=== PATIENT | female | born 1955 | race African-American/Black ===

== ENCOUNTER 2018-01-09 15:04 | Outpatient (CLI) | payer MEDICARE, MEDICAID | END 2018-01-09 15:05 | disposition home or self-care (01) | LOC: BICMAMMO 15:04 | PROVIDERS: ATTEND Nurse Practitioner Family | DX: Z12.31 Encounter for screening mammogram for malignant neoplasm of breast (principal); Z80.3 Family history of malignant neoplasm of breast | CPT/HCPCS: 77063; 77067 ==

== ENCOUNTER 2019-01-28 15:10 | Outpatient (CLI) | payer MEDICARE, MEDICAID ==
--- NOTE | 2019-01-28 15:39 | MMO ---
Bilateral MAMMO Bilat Screen [facility]. CLINICAL HISTORY: Patient is 63 years old and is seen for screening. The patient has the following family history of breast cancer: mother and sister. The patient has no personal history of cancer. VIEWS: The views performed were: bilateral craniocaudal with tomosynthesis and bilateral mediolateral oblique with tomosynthesis. FILMS COMPARED: The present examination has been compared to prior imaging studies performed at [facility] on 09/16/2014, 10/05/2015, 12/16/2016 and 01/09/2018. MAMMOGRAM FINDINGS: There are scattered fibroglandular densities. There are no suspicious masses, suspicious calcifications, or new areas of architectural distortion. IMPRESSION: THERE IS NO MAMMOGRAPHIC EVIDENCE OF MALIGNANCY. A ROUTINE FOLLOW-UP MAMMOGRAM IN 1 YEAR IS RECOMMENDED. THE RESULTS OF THIS EXAM WERE SENT TO THE PATIENT. ACR BI-RADS Category 1 - Negative MAMMOGRAPHY NOTE: 1. A negative mammogram report should not delay a biopsy if a dominant of clinically suspicious mass is present. 2. Approximately 10% to 15% of breast cancers are not detected by mammography. 3. Adenosis and dense breasts may obscure an underlying neoplasm.
== END 2019-01-28 15:11 | disposition home or self-care (01) ==
LOC: BICMAMMO 15:10
PROVIDERS: ATTEND Nurse Practitioner Family
DX: Z12.31 Encounter for screening mammogram for malignant neoplasm of breast (principal); Z80.3 Family history of malignant neoplasm of breast
CPT/HCPCS: 77063; 77067

== ENCOUNTER 2020-02-22 11:04 | Outpatient (CLI) | payer MEDICARE, MEDICAID ==
--- NOTE | 2020-02-22 13:01 | MMO ---
Bilateral MAMMO Bilat Screen [facility]. CLINICAL HISTORY: Patient is 64 years old and is seen for screening. The patient has the following family history of breast cancer: mother and sister. The patient has no personal history of cancer. VIEWS: The views performed were: bilateral craniocaudal with tomosynthesis and bilateral mediolateral oblique with tomosynthesis. FILMS COMPARED: The present examination has been compared to prior imaging studies performed at [facility] on 10/05/2015, 12/16/2016, 01/09/2018 and 01/28/2019. This study has been interpreted with the assistance of computer-aided detection. MAMMOGRAM FINDINGS: There are scattered fibroglandular densities. There are no suspicious masses, suspicious calcifications, or new areas of architectural distortion. IMPRESSION: THERE IS NO MAMMOGRAPHIC EVIDENCE OF MALIGNANCY. A ROUTINE FOLLOW-UP MAMMOGRAM IN 1 YEAR IS RECOMMENDED. THE RESULTS OF THIS EXAM WERE SENT TO THE PATIENT. ACR BI-RADS Category 1 - Negative MAMMOGRAPHY NOTE: 1. A negative mammogram report should not delay a biopsy if a dominant of clinically suspicious mass is present. 2. Approximately 10% to 15% of breast cancers are not detected by mammography. 3. Adenosis and dense breasts may obscure an underlying neoplasm. Reported by: CHARITY MCELROY MD Electonically Signed: [id number]
== END 2020-02-22 11:05 | disposition home or self-care (01) ==
LOC: BICMAMMO 11:04
PROVIDERS: ATTEND Nurse Practitioner Family
DX: Z12.31 Encounter for screening mammogram for malignant neoplasm of breast (principal); Z80.3 Family history of malignant neoplasm of breast
CPT/HCPCS: 77063; 77067

== ENCOUNTER 2020-04-02 13:33 | Inpatient (IN) | payer MEDICARE, MEDICAID, OTHER ==
[2020-04-02 14:10] LABS: #Basophils 0.1 thou/uL (0.0-0.2); #Eosinphils 0.1 thou/uL (0.0-0.7); #Lymphocytes 1.6 thou/uL (1.20-3.40); #Monocytes 0.5 thou/uL (0.11-0.59); #Neutrophils 2.4 thou/uL (1.40-6.50); %Basophils 1.5 % (0.0-1.0); %Eosinophils 1.2 % (0.0-10.0); %Lymphocytes 34.3 % (21.0-51.0); %Monocytes 10.3 % (0.0-10.0); %Neutrophils 52.7 % (42.0-75.0); Mean Corpuscular HGB CONC 32.7 g/dL (32.0-36.0); Mean Corpuscular Hemoglobin 31.2 pg (27.0-31.0); Mean Corpuscular Volume 95.3 fL (78.0-98.0); Mean Platelet Volume 7.3 fL (7.4-10.4); Platelet Count 189 thou/uL (130-400); RBC Distribution Width 11.6 % (11.5-14.5); Red Blood Cell (RBC) Count 4.51 mill/uL (4.20-5.40); White Blood Cell (WBC) Count 4.6 thou/uL (4.8-10.8)
--- NOTE | 2020-04-02 14:18 | RAD ---
Exam: Chest one view HISTORY:Chest pain Comparison: 09/26/2006, 04/02/2014 FINDINGS: Cardiac silhouette: Normal Aorta: Unremarkable Pulmonary vessels: Normal Costophrenic angles: Clear LUNGS: No masses or consolidation. Pneumothorax: None Osseous abnormalities: None IMPRESSION: No acute cardiopulmonary process.
[2020-04-02] MEDS ORDERED: Nitroglycerin 0.4 MG TAB 1 EACH ONE (14:30)
[2020-04-02 14:34] LABS: ALT (SGPT) 21 U/L (8-55); AST (SGOT) 26 U/L (5-34); Albumin 4.3 g/dL (3.4-4.8); Alkaline Phosphatase 85 U/L (40-110); Anion Gap 15 mmol/L (10-20); BUN (Urea Nitrogen) 15 mg/dL (9.8-20.1); Bilirubin, Total 0.5 mg/dL (0.2-1.2); CK (CPK) 116 U/L (29-168); Calc. Creatinine Clearance 0 mL/min (70-130); Calcium 9.6 mg/dL (7.8-10.44); Carbon Dioxide 21 mmol/L (23-31); Chloride 107 mmol/L (98-107); Estimated GFR-MDRD 60; Globulin 3.2 g/dL (2.4-3.5); Glucose 110 mg/dL (80-115); Potassium 4.5 mmol/L (3.5-5.1); Protein, Total 7.5 g/dL (6.0-8.3); Sodium 138 mmol/L (136-145)
--- NOTE | 2020-04-02 16:24 | PDOC.HHP ---
Hospitalist HPI - History of Present Illness chest pain History of Present Illness: Ms. Love is a 64-year-old female with a medical history of hypertension and tobacco abuse who presents for chest pain. The patient had lunch at around 11 AM and at around 12 PM started having retrosternal chest pain that is difficult for her to characterize, associated with left arm numbness and diaphoresis. The patient attempted to lie in bed in order to alleviate the pain but the pain worsened and as did the diaphoresis, at which point she decided to come to the ED. On encounter, Comfortably in bed and complains of retrosternal chest pain that has improved after nitroglycerin. Endorses generalized weakness. Denies syncope, presyncope , focal weakness, palpitation, shortness of breath, jaw shoulder pain, upper back pain, epigastric pain, epigastric burning, dysphagia, dysarthria, hematochezia, melena, nausea vomiting, dysuria, hematuria, premature family heart disease. ED Course: In the ED, the patient was started on aspirin 325 mg, was administered nitroglycerin x2, and admitted for further management. Hospitalist ROS - Review of Systems All other systems reviewed; all pertinent +/- noted in HPI/Subj Hospitalist History - Past Medical History Cardiac: reports: HTN, Hyperlipidemia. denies: CAD, CHF, [place], Syncope Pulmonary: denies: angina, asthma, CVA/TIA/stroke, COPD, heart attack, lung disease RECONCILIATION COORDINATOR: denies: CVA, Seizure, TIA Gastrointestinal: reports: no pertinent history Heme/Onc: reports: no pertinent history Psych: reports: no pertinent history Musculoskeletal: reports: no pertinent history Rheumatologic: reports: no pertinent history Infectious Disease: reports: no pertinent history ENT: reports: no pertinent history Renal/: reports: no pertinent history Endocrine: reports: no pertinent history. denies: Diabetes - Past Surgical History Past Surgical History: reports: Cholecystectomy, Hysterectomy, Tonsillectomy - Family History Family History: reports: cardiac disorder (father, diagnosed at age 80) - Social History Smoking Status: Current every day smoker (1/2 pack for 10-15 years) Alcohol: reports: Occassional (1-2 beers daily) Drugs: reports: none Living Situation: With Family Activity level: independent ambulation - Exam General Appearance: NAD, awake alert Eye: PERRL, anicteric sclera Neck: no JVD Heart: RRR, no murmur, no gallops, no rubs Respiratory: CTAB, no wheezes, no rales, no ronchi Gastrointestinal: soft, non-tender, non-distended, normal bowel sounds Extremities: no edema Psychiatric: normal affect, normal behavior, A&O x 3 Hospitalist Results - Labs Result Diagrams: 04/02/20 14:02 04/02/20 14:02 Lab results: WBC 4.6 thou/uL (4.8-10.8) L 04/02/20 14:02 Hgb 14.0 g/dL (12.0-16.0) 04/02/20 14:02 Hct 42.9 % (36.0-47.0) 04/02/20 14:02 MCV 95.3 fL (78.0-98.0) 04/02/20 14:02 Plt Count 189 thou/uL (130-400) 04/02/20 14:02 Neutrophils % 52.7 % (42.0-75.0) 04/02/20 14:02 Sodium 138 mmol/L (136-145) 04/02/20 14:02 Potassium 4.5 mmol/L (3.5-5.1) 04/02/20 14:02 Chloride 107 mmol/L (98-107) 04/02/20 14:02 Carbon Dioxide 21 mmol/L (23-31) L 04/02/20 14:02 BUN 15 mg/dL (9.8-20.1) 04/02/20 14:02 Creatinine 1.11 mg/dL (0.6-1.1) H 04/02/20 14:02 Glucose 110 mg/dL (80-115) 04/02/20 14:02 Calcium 9.6 mg/dL (7.8-10.44) 04/02/20 14:02 Total Bilirubin 0.5 mg/dL (0.2-1.2) 04/02/20 14:02 AST 26 U/L (5-34) 04/02/20 14:02 ALT 21 U/L (8-55) 04/02/20 14:02 Alkaline Phosphatase 85 U/L (40-110) 04/02/20 14:02 Creatine Kinase 116 U/L (29-168) 04/02/20 14:02 Troponin I 0.013 ng/mL (< 0.028) 04/02/20 14:02 Serum Total Protein 7.5 g/dL (6.0-8.3) 04/02/20 14:02 Albumin 4.3 g/dL (3.4-4.8) 04/02/20 14:02 - EKG Interpretation EKG: normal sinus with lateral biphasic (positive then negative) t-waves - Radiology Interpretation Chest x-ray Status: image reviewed by me (no acute cardiopulmonary process) Hospitalist H&P A/P - Problem (1) Unstable angina Status: Acute (2) Hypertensive emergency Code(s): I16.1 - HYPERTENSIVE EMERGENCY Status: Acute - Plan Plan: #Unstable angina #Hypertensive emergency Presented with typical chest pain, currently improving CK and troponin negative EKG showing biphasic T waves in lateral leads MALU score 0 Intermediate pretest probability for coronary artery disease considering improvement with lowering of blood pressure and nitrogly, abovementioned, will hold anticoag and antiplt Aspirin, metoprolol, morphine as needed chest pain, nitroglycerin as needed chest pain, oxygen to keep saturation between 90 to 92% Cardiac stress test Amlodipine and lisinopril for hypertension. Goal map 15 to 20% lower than presentation in the next 24 hours Stop metoprolol prior to stress test tomorrow Disposition/PPx Full code. is surrogate, next in line is daughter GI PPx: No Ix DVT PPx: Lovenox
[2020-04-02 19:22] VITALS: BMI 32.2
[2020-04-02] MEDS ORDERED: hydrALAZINE 20 MG/ML VIAL SLOW IVP PRN (19:24)
[2020-04-02] MEDS ORDERED: Ondansetron ODT 4 MG TAB PO PRN (19:24)
[2020-04-02] MEDS ORDERED: Ondansetron PF 4 MG/2 ML Vial IVP PRN (19:24)
[2020-04-02] MEDS ORDERED: Acetaminophen 325 MG TAB PO PRN (19:24)
[2020-04-02] MEDS ORDERED: Nitroglycerin 0.4 MG TAB (25 Tab Bottle) SL PRN (19:24)
[2020-04-02] MEDS ORDERED: Morphine 4 MG/ML VIAL SLOW IVP PRN (19:24)
[2020-04-02] MEDS ORDERED: Amlodipine 10 MG TAB PO SCH (19:30)
[2020-04-02] MEDS: Sodium Chloride 0.9% 1,000 ML IV SCH (19:43)
[2020-04-02] MEDS ORDERED: Metoprolol Tartrate 25 MG TAB PO SCH (19:45)
[2020-04-02] MEDS: Atorvastatin Calcium 40 MG TAB PO SCH (19:54)
[2020-04-02] MEDS: Metoprolol Tartrate 25 MG TAB PO SCH (19:55)
--- NOTE | 2020-04-02 21:07 | PDOC.EVN ---
Event Note - Event Note Event Note: Nurse called to report ongoing chest pain, improved since admission and troponin level positive. Ordered nitropaste, consulted cardiology, d/c'd CREDENTIALS SPECIALIST. LMWH 1mg/kg. Will order another trop and EKG at 2300
[2020-04-02] MEDS ORDERED: Enoxaparin Sodium 80 MG/0.8 ML SYRINGE SC SCH (21:15)
[2020-04-02] MEDS: Nitroglycerin 2% Ointment 1 INCH/1 GM Packet TOP SCH (21:19)
[2020-04-03 00:02] LABS: Troponin I 1.447 ng/mL (< 0.028)
[2020-04-03 04:32] LABS: #Eosinphils 0.1 thou/uL (0.0-0.7); #Lymphocytes 1.7 thou/uL (1.20-3.40); #Monocytes 0.5 thou/uL (0.11-0.59); #Neutrophils 2.7 thou/uL (1.40-6.50); %Basophils 0.9 % (0.0-1.0); %Eosinophils 1.3 % (0.0-10.0); %Lymphocytes 33.9 % (21.0-51.0); %Monocytes 9.3 % (0.0-10.0); %Neutrophils 54.6 % (42.0-75.0); Hemoglobin 12.5 g/dL (12.0-16.0); Mean Corpuscular HGB CONC 31.9 g/dL (32.0-36.0); Mean Corpuscular Hemoglobin 30.5 pg (27.0-31.0); Mean Corpuscular Volume 95.4 fL (78.0-98.0); Mean Platelet Volume 7.4 fL (7.4-10.4); Platelet Count 182 thou/uL (130-400); RBC Distribution Width 11.5 % (11.5-14.5); Red Blood Cell (RBC) Count 4.12 mill/uL (4.20-5.40)
[2020-04-03 04:47] LABS: Anion Gap 10 mmol/L (10-20); BUN (Urea Nitrogen) 15 mg/dL (9.8-20.1); Calc. Creatinine Clearance 82 mL/min (70-130); Carbon Dioxide 24 mmol/L (23-31); Chloride 107 mmol/L (98-107); Estimated GFR-MDRD 73; Glucose 106 mg/dL (80-115); Sodium 137 mmol/L (136-145)
[2020-04-03] MEDS: Nitroglycerin 2% Ointment 1 INCH/1 GM Packet TOP SCH ×3 (05:15→23:37)
[2020-04-03] MEDS ORDERED: Clopidogrel Bisulfate 300 MG TAB PO SCH (07:30)
[2020-04-03] MEDS: Lisinopril 20 MG TAB PO SCH (08:36)
[2020-04-03] MEDS: Metoprolol Tartrate 25 MG TAB PO SCH ×2 (08:37→20:43)
[2020-04-03] MEDS: Amlodipine 10 MG TAB PO SCH (08:37)
[2020-04-03] MEDS: Enoxaparin Sodium 80 MG/0.8 ML SYRINGE SC SCH ×2 (08:37→09:21)
[2020-04-03] MEDS ORDERED: Enoxaparin Sodium 30 MG/0.3 ML SYRINGE SC SCH (09:00)
[2020-04-03] MEDS: Sodium Chloride 0.9% 1,000 ML IV SCH (09:05)
[2020-04-03] MEDS ORDERED: Communication Order-Pharmacy FS SCH (09:15)
[2020-04-03] MEDS ORDERED: Sodium Chloride 0.9% 1,000 ML IV SCH ×2 (09:15→14:45)
[2020-04-03] MEDS ORDERED: Iopamidol 370 76% 100 ML VIAL ONE (09:17)
[2020-04-03] MEDS ORDERED: Iopamidol 370 76% 50 ML VIAL FS ONE (09:17)
--- NOTE | 2020-04-03 09:38 | CON ---
DATE OF CONSULTATION: REASON FOR CONSULTATION: Elevated troponin. HISTORY OF PRESENT ILLNESS: Ms. King is a very pleasant 64-year-old woman, who has not been seen by Cardiology in the past. She recently presented with chest pain. It lasted for 2 hours. She states she had complete relief upon arriving to the emergency room. She had a peak troponin of 1.2. She is currently pain free. PAST MEDICAL HISTORY: She has no previous history of underlying coronary artery disease. She does have a previous history of smoking. PAST SURGICAL HISTORY: Cholecystectomy, hysterectomy, and tonsillectomy. FAMILY HISTORY: Positive for CAD. SOCIAL HISTORY: Positive alcohol. Positive tobacco use. HOME MEDICATIONS: Include, 1. Quinapril. 2. Lovastatin. 3. Amlodipine. REVIEW OF SYSTEMS: A 10-point review of systems is reviewed as above, otherwise negative. PHYSICAL EXAMINATION: GENERAL: Patient is a pleasant woman who is in no acute distress. The patient appears their stated age. VITAL SIGNS: Blood pressure 176/85, pulse 80, temperature 98.3. NEUROLOGIC: The patient is alert and oriented x3 with no focal neurologic deficits. HEENT: Sclerae without icterus. Mouth has moist mucous membranes with normal pallor. NECK: No JVD. Carotid upstroke brisk. No bruits bilaterally. LUNGS: Clear to auscultation with unlabored respirations. BACK: No scoliosis or kyphosis. CARDIAC: Regular rate and rhythm with normal S1 and S2. No S3 or S4 noted. No significant rubs, murmurs, thrills, or gallops noted throughout the precordium. PMI is not displaced. There is no parasternal heave. ABDOMEN: Soft, nontender, nondistended. No peritoneal signs present. No hepatosplenomegaly. No abnormal striae. EXTREMITIES: 2+ femoral and 2+ dorsalis pedis pulses. No cyanosis, clubbing, or edema. SKIN: No gross abnormalities. PERTINENT LABORATORY DATA: Hemoglobin 12.5. Creatinine 0.9. Peak troponin of 1.44. EKG shows normal sinus rhythm, nonspecific ST-T wave changes. IMPRESSION: 1. Non-Q-wave myocardial infarction. 2. Tobacco abuse. RECOMMENDATIONS: Ms. King's symptoms were acute in onset. Her symptoms are suggestive of unstable plaque and consistent with unstable angina. She is currently pain free. At this point, I recommend coronary angiography plus PCI. I discussed the procedure in full detail with Ms. King. Risks include, but not limited to the following: , stroke, MA, need for emergency surgery, loss of limb, bleeding, and infection, as well as a reaction to the dye causing kidney failure and needing long-term dialysis. I also discussed the risks of PCI to include all of the above including coronary dissection and perforation in addition to acute stent thrombosis and restenosis. All questions were answered. Given the above, the patient agreed to proceed with above procedure. There are no contraindications to drug-coated stent placement. She states she can be compliant with medication for at least 6 months. No back injections or surgeries planned and no bleeding issues. We will proceed with drug-coated stent if needed. Job ID: [id number]
[2020-04-03 12:01] LABS: SARS-CoV-2 MS2 Positive; SARS-CoV-2 N Gene Negative; SARS-CoV-2 S Gene Negative; SARS-CoV-2 by NAA Not Detected (NotDetected); SARS-CoV-2 orf1ab Negative
[2020-04-03] MEDS ORDERED: Verapamil 5 MG/2 ML VIAL ONE (13:05)
[2020-04-03] MEDS ORDERED: Nitroglycerin 100MG/250ML BOT 250 ML ONE (13:05)
[2020-04-03] MEDS ORDERED: Heparin 10,000 UNITS/ 10 ML VIAL ONE (13:05)
[2020-04-03] MEDS ORDERED: Midazolam HCl 2 mg/2 ml Vial ONE (14:01)
[2020-04-03] MEDS ORDERED: Fentanyl 100 MCG/2 ML VIAL ONE (14:02)
[2020-04-03] MEDS ORDERED: Aspirin Chewable 81 MG TAB ONE (14:39)
[2020-04-03] MEDS ORDERED: Clopidogrel Bisulfate 300 MG TAB ONE (14:39)
[2020-04-03] MEDS ORDERED: Acetaminophen 325 MG TAB ONE (15:39)
[2020-04-03] MEDS ORDERED: hydrALAZINE 20 MG/ML VIAL SLOW IVP PRN (19:13)
--- NOTE | 2020-04-03 19:16 | PDOC.HOSPP ---
- Subjective Encounter Date: 04/03/20 Encounter Time: 10:00 Subjective: overnight, chest pain, elevated trop, started anticoagulation for NSTEMI. This morning, chest pain improved, pending PCI. - Objective Vital Signs & Weight: Vital Signs (12 hours) Temp Pulse Resp BP BP Pulse Ox 04/03/20 11:45 98.3 F 60 16 162/74 H 97 04/03/20 09:52 150/73 H 04/03/20 09:33 61 187/81 H 04/03/20 07:43 98.3 F 80 18 176/85 H 96 Weight Weight 187 lb 11.2 oz I&O: 04/02/20 04/03/20 04/04/20 06:59 06:59 06:59 Intake Total 771 Balance 771 Result Diagrams: 04/03/20 03:51 04/03/20 03:51 Additional Labs: Accuchecks 04/03/20 05:59 POC Glucose 104 Hospitalist ROS - Review of Systems Constitutional: denies: chills, sweats Respiratory: denies: cough, shortness of breath, SOB with excertion, pleuritic pain Cardiovascular: denies: chest pain, palpitations, orthopnea, paroxysmal noc. dyspnea, edema Gastrointestinal: denies: nausea, vomiting - Medication Medications: Active Medications Generic Name Dose Route Start Last Admin Trade Name Freq PRN Reason Stop Dose Admin Amlodipine Besylate 10 mg 04/03/20 09:00 04/03/20 08:37 Norvasc PO 10 mg DAILY MARGARET Administration Atorvastatin Calcium 80 mg 04/02/20 21:00 04/02/20 19:54 Lipitor PO 80 mg HS MARGARET Administration Sodium Chloride 1,000 mls @ 100 mls/hr 04/03/20 14:45 04/03/20 17:11 Normal Saline 0.9% IV 04/03/20 22:46 Not Given .Q10H MARGARET Lisinopril 20 mg 04/03/20 09:00 04/03/20 08:36 Zestril PO 20 mg DAILY MARGARET Administration Metoprolol Tartrate 12.5 mg 04/02/20 21:00 04/03/20 08:37 Lopressor PO 12.5 mg BID MARGARET Administration Morphine Sulfate 4 mg 04/02/20 19:24 04/02/20 19:48 Morphine SLOW IVP 4 mg Q4H PRN Administration Chest Pain Nitroglycerin 0.5 inch 04/02/20 22:00 04/03/20 17:11 Nitro-Bid 2% Ointment TOP Not Given Q8HR MARGARET Sodium Chloride 10 ml 04/03/20 09:00 04/03/20 08:38 Flush - Normal Saline IVF 10 ml Q12HR MARGARET Administration - Exam General Appearance: NAD, awake alert Neck: no JVD Heart: RRR, no murmur, no gallops, no rubs Respiratory: CTAB, no wheezes, no rales, no ronchi Gastrointestinal: soft, non-tender, non-distended, normal bowel sounds Extremities: no edema Psychiatric: normal affect, normal behavior, A&O x 3 Hosp A/P (1) Unstable angina Status: Acute (2) Hypertensive emergency Code(s): I16.1 - HYPERTENSIVE EMERGENCY Status: Acute - Plan #NSTEMI -aspirin, plavix, lovenox, metoprolol, lisinopril, atorvastatin; nitro and morphine PRN chest pain -pending PCI full code ELOS 1 night GI PPx no Ix DVT PPx on anticoag for NSTEMI
[2020-04-03] MEDS: Atorvastatin Calcium 40 MG TAB PO SCH (20:43)
[2020-04-04 03:58] LABS: #Lymphocytes 1.3 thou/uL (1.20-3.40); #Monocytes 0.6 thou/uL (0.11-0.59); #Neutrophils 3.1 thou/uL (1.40-6.50); %Basophils 0.2 % (0.0-1.0); %Eosinophils 0.8 % (0.0-10.0); %Lymphocytes 25.5 % (21.0-51.0); %Monocytes 11.5 % (0.0-10.0); %Neutrophils 62.1 % (42.0-75.0); Mean Corpuscular HGB CONC 32.8 g/dL (32.0-36.0); Mean Corpuscular Volume 94.5 fL (78.0-98.0); Mean Platelet Volume 7.3 fL (7.4-10.4); Platelet Count 155 thou/uL (130-400); RBC Distribution Width 11.3 % (11.5-14.5); Red Blood Cell (RBC) Count 3.87 mill/uL (4.20-5.40); White Blood Cell (WBC) Count 5.1 thou/uL (4.8-10.8)
[2020-04-04 04:23] LABS: Phosphorus 3.5 mg/dL (2.3-4.7)
[2020-04-04 04:26] LABS: ALT (SGPT) 25 U/L (8-55); AST (SGOT) 39 U/L (5-34); Albumin 3.5 g/dL (3.4-4.8); Alkaline Phosphatase 73 U/L (40-110); Anion Gap 11 mmol/L (10-20); BUN (Urea Nitrogen) 11 mg/dL (9.8-20.1); Bilirubin, Total 0.5 mg/dL (0.2-1.2); Calc. Creatinine Clearance 86 mL/min (70-130); Calcium 8.9 mg/dL (7.8-10.44); Carbon Dioxide 22 mmol/L (23-31); Chloride 107 mmol/L (98-107); Estimated GFR-MDRD 77; Globulin 2.8 g/dL (2.4-3.5); Glucose 104 mg/dL (80-115); Magnesium 2.1 mg/dL (1.6-2.6); Protein, Total 6.3 g/dL (6.0-8.3); Sodium 136 mmol/L (136-145)
[2020-04-04] MEDS: Nitroglycerin 2% Ointment 1 INCH/1 GM Packet TOP SCH (06:18)
[2020-04-04 07:29] VITALS: TEMP 98.9
--- NOTE | 2020-04-04 08:00 | PRG ---
DATE OF SERVICE: 04/04/2020 SUBJECTIVE: Ms. King is doing much better today. No current complaints. OBJECTIVE: VITAL SIGNS: Blood pressure 145/66, pulse 66, temperature 99. Physical exam deferred due to COVID. PERTINENT LABORATORY DATA: Hemoglobin 12, hematocrit 36.5, platelet count of 155. IMPRESSION: 1. Non-Q-wave myocardial infarction. 2. Coronary artery disease. 3. Tobacco abuse. RECOMMENDATIONS: The patient did have a completely occluded small branch off the circumflex artery. This was revascularized with PTCA only due to the small size of the vessel. There initially with MALU-1 flow. There was MALU-3 flow noted at the end of the study. Recommend aspirin, Plavix, ARB in addition to beta-maldonado therapy. Would also recommend statin treatment. I did budget counselor on cessation of tobacco products. It is okay from my standpoint to discharge home with close outpatient followup. Job ID: [id number]
[2020-04-04] MEDS ORDERED: Aspirin 81 mg Enteric Coated Tablet PO SCH (09:00)
[2020-04-04] MEDS ORDERED: Metoprolol Tartrate 25 MG TAB PO SCH (09:00)
[2020-04-04] MEDS ORDERED: Clopidogrel Bisulfate 75 MG TAB PO SCH (09:00)
[2020-04-04] MEDS: Amlodipine 10 MG TAB PO SCH (09:38)
[2020-04-04] MEDS: Lisinopril 20 MG TAB PO SCH (09:39)
[2020-04-04] MEDS: Metoprolol Tartrate 25 MG TAB PO SCH (09:43)
[2020-04-04 11:32] VITALS: BP 127/71
--- NOTE | 2020-04-04 13:11 | DIS ---
DATE OF ADMISSION: 04/02/2020 DATE OF DISCHARGE: 04/04/2020 HOSPITAL COURSE: Ms. King is a 64-year-old female with medical history of hypertension and tobacco abuse, who presented with typical cardiac chest pain. She was diagnosed with NSTEMI. Cardiology was consulted and she underwent PCI with PTCA of small branch of the circumflex artery. Pre-revascularization MALU was 1 and post-rerevascularization MALU was 3. The patient was discharged home hemodynamically stable on aspirin, Plavix, ABIDA inhibitor, and beta-maldonado as per Cardiology recommendations after counseling on tobacco cessation. PHYSICAL EXAMINATION: VITAL SIGNS: Blood pressure 145/66, pulse 66, respiratory rate 16, oxygen saturation 99% on room air, and temperature 98.9. GENERAL: Awake and alert, lying comfortably in bed. HEENT: Normocephalic, atraumatic. CARDIAC: Regular rate and rhythm. No murmurs, gallops, or rubs. No JVD. LUNGS: Clear to auscultation bilaterally. No wheezing, rales, or rhonchi. GASTROINTESTINAL: Soft, nontender, and nondistended. Normal bowel sounds. EXTREMITIES: No edema. PSYCHIATRIC: Proper mood and affect. Alert and oriented x3. MEDICATION LIST: New medications: 1. Nitroglycerin 0.4 mg sublingual q.5 minutes for chest pain. 2. Amlodipine 10 mg p.o. daily. 3. Aspirin 81 mg p.o. daily. 4. Atorvastatin 80 mg p.o. at bedtime. 5. Plavix 75 mg p.o. daily. 6. Lisinopril 20 mg p.o. daily. 7. Metoprolol tartrate 6.25 mg p.o. b.i.d. Modified medications: No modified medications. Discontinued medications: 1. Quinapril. 2. Lovastatin. Continued medications: No old continued medications. Job ID: [id number]
== END 2020-04-04 12:30 | disposition home or self-care (01) | DRG 251 ==
LOC: ERS 13:33 → 2SW 15:31 → OBSVTOIN 21:00 → 2NO 21:54
PROVIDERS: ADMIT Internal Medicine; ATTEND Internal Medicine
PROC: B2111ZZ Fluoroscopy of Multiple Coronary Arteries using Low Osmolar Contrast (ICD-10-PCS; principal; 2020-04-03)
PROC: 02703ZZ Dilation of Coronary Artery, One Artery, Percutaneous Approach (ICD-10-PCS; 2020-04-03)
PROC: B2151ZZ Fluoroscopy of Left Heart using Low Osmolar Contrast (ICD-10-PCS; 2020-04-03)
PROC: 4A023N7 Measurement of Cardiac Sampling and Pressure, Left Heart, Percutaneous Approach (ICD-10-PCS; 2020-04-03)
DX: I21.4 Non-ST elevation (NSTEMI) myocardial infarction (principal); I16.1 Hypertensive emergency; I20.0 Unstable angina; I10 Essential (primary) hypertension; E78.5 Hyperlipidemia, unspecified; F17.200 Nicotine dependence, unspecified, uncomplicated; Z90.49 Acquired absence of other specified parts of digestive tract; Z90.710 Acquired absence of both cervix and uterus; Z79.899 Other long term (current) drug therapy
CPT/HCPCS: 36415; 36416; 71045; 76942; 80048; 80053; 82550; 82553; 83735; 84100; 84484; 85025; 85347; 87635; 92920; 93005; 93010; 93458; 93798; 94760; 96374; 99152; 99153; G0378; J0360; J1644; J1650; J2250; J2270; J3010; Q9967; U0003

== ENCOUNTER 2021-01-17 08:32 | Emergency (ER) | payer MEDICARE, MEDICAID ==
[2021-01-17] MEDS ORDERED: HYDROcodone/Acetaminophen 7.5/325 mg Tablet ONE (10:42)
[2021-01-17] MEDS ORDERED: Ketorolac Tromethamine 30 MG/ML VIAL ONE (10:42)
[2021-01-17 11:21] LABS: #Eosinphils 0.1 thou/uL (0.0-0.7); #Lymphocytes 1.8 thou/uL (1.20-3.40); #Monocytes 0.4 thou/uL (0.11-0.59); #Neutrophils 1.5 thou/uL (1.40-6.50); %Basophils 1.3 % (0.0-1.0); %Eosinophils 1.7 % (0.0-10.0); %Lymphocytes 47.4 % (21.0-51.0); %Monocytes 11.5 % (0.0-10.0); %Neutrophils 38.1 % (42.0-75.0); Mean Corpuscular HGB CONC 31.8 g/dL (32.0-36.0); Mean Corpuscular Hemoglobin 30.6 pg (27.0-31.0); Mean Corpuscular Volume 96.2 fL (78.0-98.0); Mean Platelet Volume 6.6 fL (7.4-10.4); Platelet Count 186 thou/uL (130-400); RBC Distribution Width 11.6 % (11.5-14.5); Red Blood Cell (RBC) Count 4.26 mill/uL (4.20-5.40); White Blood Cell (WBC) Count 3.9 thou/uL (4.8-10.8)
== END 2021-01-17 12:40 | disposition home or self-care (01) ==
LOC: ERS 08:32
DX: M16.12 Unilateral primary osteoarthritis, left hip (principal); J45.909 Unspecified asthma, uncomplicated; E78.00 Pure hypercholesterolemia, unspecified; E78.5 Hyperlipidemia, unspecified; I10 Essential (primary) hypertension; F17.210 Nicotine dependence, cigarettes, uncomplicated; Z79.899 Other long term (current) drug therapy
CPT/HCPCS: 36415; 72170; 85025; 86140; 96372; J1885

== ENCOUNTER 2021-06-19 10:54 | Outpatient (CLI) | payer MEDICARE, MEDICAID | END 2021-06-19 10:55 | disposition home or self-care (01) | LOC: BICMAMMO 10:54 | PROVIDERS: ATTEND Nurse Practitioner Family | DX: Z12.31 Encounter for screening mammogram for malignant neoplasm of breast (principal); Z80.3 Family history of malignant neoplasm of breast | CPT/HCPCS: 77063; 77067 ==

== ENCOUNTER 2022-07-09 09:05 | Outpatient (CLI) | payer OTHER, MEDICAID | END 2022-07-09 09:06 | disposition home or self-care (01) | LOC: SCSMRI 09:05 | PROVIDERS: ATTEND Orthopaedic Surgery | DX: M48.061 Spinal stenosis, lumbar region without neurogenic claudication (principal); M47.816 Spondylosis without myelopathy or radiculopathy, lumbar region; M51.36 Other intervertebral disc degeneration, lumbar region; R93.421 Abnormal radiologic findings on diagnostic imaging of right kidney; R93.422 Abnormal radiologic findings on diagnostic imaging of left kidney | CPT/HCPCS: 72148 ==

== ENCOUNTER 2022-09-10 09:57 | Outpatient (CLI) | payer OTHER, MEDICAID | END 2022-09-10 09:58 | disposition home or self-care (01) | LOC: BICMAMMO 09:57 | PROVIDERS: ATTEND Family Medicine | DX: Z12.31 Encounter for screening mammogram for malignant neoplasm of breast (principal); Z13.820 Encounter for screening for osteoporosis; Z78.0 Asymptomatic menopausal state; M54.50 Low back pain, unspecified; Z80.3 Family history of malignant neoplasm of breast | CPT/HCPCS: 77063; 77067; 77080 ==

== ENCOUNTER 2023-10-30 12:45 | Emergency (ER) | payer OTHER, MEDICAID ==
[2023-10-30] MEDS ORDERED: hydrALAZINE 20 MG/ML VIAL ONE (13:52)
[2023-10-30 13:56] LABS: #Basophils Less than 0.03 10x3/uL (0.0-0.2); %Basophils 0.6 % (0.0-1.0); %Eosinophils 1.1 % (0.0-10.0); %Lymphocytes 44.2 % (21.0-51.0); %Neutrophils 42.8 % (42.0-75.0); Hematocrit 43.8 % (36.0-47.0); Hemoglobin 14.7 g/dL (12.0-16.0); Mean Corpuscular HGB CONC 33.6 g/dL (32.0-36.0); Mean Corpuscular Hemoglobin 31.8 pg (27.0-31.0); Mean Corpuscular Volume 94.8 fL (78.0-98.0); Mean Platelet Volume 9.3 fL (7.4-10.4); Platelet Count 171 10x3/uL (130-400); RBC Distribution Width 12.8 % (11.5-14.5); Red Blood Cell (RBC) Count 4.62 mill/uL (4.20-5.40)
[2023-10-30 14:05] LABS: Bacteria/HPF None Seen HPF (None Seen); Bilirubin Negative (Negative); Blood, Urine Negative (Negative); CAUTI Indications for Culture Dysuria,urgency,freq; Clarity Clear (Clear); Glucose, Urine (Dipstick) Normal (Negative); Ketone, Urine Negative (Negative); Leukocyte Negative Leu/uL (Negative); Nitrite Negative (Negative); Protein, Urine (Dipstick) Negative (Neg-Trace); RBC/HPF 0-3 HPF (0-3); Specific Gravity, Urine 1.014 (1.002-1.036); Urobilinogen Normal mg/dL (Less than 2); WBC/HPF 0-3 HPF (0-3)
[2023-10-30 14:07] LABS: Urine Culture Reflex No No
[2023-10-30 14:23] LABS: Troponin I 0.011 ng/mL (< 0.028)
[2023-10-30 14:25] LABS: ALT (SGPT) 33 U/L (8-55); AST (SGOT) 27 U/L (5-34); Albumin 4.4 g/dL (3.4-4.8); Alkaline Phosphatase 92 U/L (40-110); Anion Gap 12 mmol/L (10-20); BUN (Urea Nitrogen) 11 mg/dL (9.8-20.1); Bilirubin, Total 0.7 mg/dL (0.2-1.2); Calc. Creatinine Clearance 0 mL/min (70-130); Calcium 9.9 mg/dL (7.8-10.44); Carbon Dioxide 24 mmol/L (23-31); Chloride 105 mmol/L (98-107); Estimated GFR 73; Globulin 3.5 g/dL (2.4-3.5); Glucose 95 mg/dL (80-115); Protein, Total 7.9 g/dL (5.8-8.1); Sodium 137 mmol/L (136-145)
== END 2023-10-30 15:38 | disposition home or self-care (01) ==
LOC: ERS 12:45
DX: I10 Essential (primary) hypertension (principal); R51.9 Headache, unspecified; E78.00 Pure hypercholesterolemia, unspecified; F17.210 Nicotine dependence, cigarettes, uncomplicated; Z79.899 Other long term (current) drug therapy
CPT/HCPCS: 70450; 71045; 80053; 81001; 83880; 84484; 85025; 93005; 96374; 99284; J0360

== ENCOUNTER 2024-02-04 10:35 | Outpatient (CLI) | payer OTHER | END 2024-02-04 10:36 | disposition home or self-care (01) | LOC: BICRAD 10:35 | PROVIDERS: ATTEND Family Medicine | DX: M25.522 Pain in left elbow (principal); M25.422 Effusion, left elbow; M19.022 Primary osteoarthritis, left elbow ==

== ENCOUNTER 2024-05-06 08:00 | Outpatient (CLI) | payer OTHER, MEDICAID | END 2024-05-06 08:01 | disposition home or self-care (01) | LOC: NM 08:00 | PROVIDERS: ATTEND Specialist | DX: T84.84XA Pain due to internal orthopedic prosthetic devices, implants and grafts, initial encounter (principal); Z96.651 Presence of right artificial knee joint | CPT/HCPCS: 78315; A9503 ==

== ENCOUNTER 2025-06-03 14:59 | Outpatient (CLI) | payer OTHER | END 2025-06-03 15:00 | disposition home or self-care (01) | LOC: BICRAD 14:59 | PROVIDERS: ATTEND Family Medicine | DX: M25.511 Pain in right shoulder (principal); M19.011 Primary osteoarthritis, right shoulder ==